=== PATIENT | female | born 1945 | race Caucasian/White ===

== ENCOUNTER → 2020-02-14 | Outpatient (CLI) | payer MEDICARE, OTHER ==
[~2020-02-14] MED LIST: ACET325 PO; AMLO5; AMLO5 PO; BENZ100A PO; CALCIUM; CHOL10002 PO; CLOP75 PO; CONEST.625; DICL75ER; DOCU100 PO; Estradiol0.5 MG PO; FERR325 PO; FLUO20; FLUSAL1005 INH; GABA600 PO; GLYCAS PR; HYDR1TAB94 PO; K-Dur20 MEQ PO; LISHYD2012; Lasix20 MG PO; Lopressor 25 mg25 MG PO; MELA3 PO; MONT10T PO; MULTI VIT; MULVITMIND PO; NYST100000 PO; OMEP20ER; OXYACE5T PO; OXYACE7.5T PO; PLAQUENIL200 MG PO; Percocet 5-3251 EACH PO; RXOXYACE PO; THEO300ERA; TOCO400; VITAMIN B 12; VITAMIN C; Zithromax250 MG PO; Zofran Odt4 MG PO
== END | disposition home or self-care (01) ==
LOC: LAB SHORT 14:14 → LAB EV 14:14
DX: R05 Cough (principal); Z20.828 Contact with and (suspected) exposure to other viral communicable diseases
CPT/HCPCS: U0003

== ENCOUNTER → 2021-05-06 | Outpatient (CLI) | payer MEDICARE, OTHER ==
[~2021-05-06] MED LIST changes: +ALBU90OI INH; +ASCO500 PO; +CAL-CITRATE PL1 EAC1 PO; +FERROUS GLUCON PO; +METTREX2.5; +NITROGLYCERIN0.4 M1 SL; +OMEP20ER PO; +PLAQUENIL200 M1 PO; +Vitamin B-121000 MCG PO; +ZOLEDRONIC ACID; +ZOLOFT100 MG PO; +ZYRTEC10 M3 PO
[2021-05-06 14:15] LABS: BASOPHILS ABSOLUTE AUTO 0.02 K/mm3 (0.00-0.23); BASOPHILS PERCENT AUTO 0 % (0-2); EOSINOPHILS ABSOLUTE AUTO 0.07 K/mm3 (0.00-0.68); EOSINOPHILS PERCENT AUTO 1 % (0-6); Hematocrit 47.1 % (33.0-51.0); Hemoglobin 15.7 g/dL (11.5-16.0); IMMATURE GRAN ABSOLUTE AUTO 0.03 K/mm3 (0.00-0.10); IMMATURE GRAN PERCENT AUTO 1 % (0-1); LYMPHOCYTES ABSOLUTE AUTO 1.08 K/mm3 (0.84-5.20); LYMPHOCYTES PERCENT AUTO 21 % (21-46); MONOCYTES ABSOLUTE AUTO 0.47 K/mm3 (0.16-1.47); MONOCYTES PERCENT AUTO 9 % (4-13); Mean Corpuscular HGB 30.7 pg (26.0-34.0); Mean Corpuscular HGB Conc 33.3 g/dL (31.5-36.5); Mean Corpuscular Volume 92 fL (80-100); Mean Platelet Volume 9.9 fL (9.1-12.4); NEUTROPHILS ABSOLUTE AUTO 3.37 K/mm3 (1.96-9.15); NEUTROPHILS PERCENT AUTO 67 % (41-73); Platelet Count 238 K/mm3 (150-400); Red Blood Cell Count 5.11 M/mm3 (3.80-5.20); White Blood Cell Count 5.04 K/mm3 (4.00-11.30)
[2021-05-06 14:23] LABS: Alanine Aminotransfer (ALT/SGP 28 U/L (12-78); Albumin, Blood 3.8 g/dL (3.4-5.0); Albumin/Globulin Ratio 1.3 (0.8-1.8); Alk Phos 158 U/L (40-126); Anion Gap 10 mmol/L (6-16); Aspartate Aminotrans (AST/SGOT 16 U/L (12-37); Bilirubin, Total 0.5 mg/dL (0.1-1.0); Blood Urea Nitrogen 22 mg/dL (8-24); CO2, Blood 29 mmol/L (21-32); Calcium, Blood 9.3 mg/dL (8.5-10.1); Chloride, Blood 102 mmol/L (98-108); Creatinine, Blood 0.88 mg/dL (0.40-1.00); Glomerular Filtration Rate >60 (60-); Glucose, Blood 105 mg/dL (70-99); Potassium, Blood 4.7 mmol/L (3.5-5.5); Sodium, Blood 141 mmol/L (136-145); Total Protein, Blood 6.8 g/dL (6.4-8.2)
== END | disposition home or self-care (01) ==
LOC: LAB SHORT 14:09
PROVIDERS: General Practice
DX: Z09 Encounter for follow-up examination after completed treatment for conditions other than malignant neoplasm (principal); Z87.09 Personal history of other diseases of the respiratory system
CPT/HCPCS: 80053; 85025

== ENCOUNTER 2021-06-07 08:11 | Day surgery (SDC) | payer MEDICARE, OTHER ==
[~2021-06-07] VITALS: Ht 162.6 cm; Wt 118.2 kg
== END 2021-06-07 10:49 | disposition home or self-care (01) ==
LOC: ORSCSDS 08:11
PROVIDERS: Internal Medicine Gastroenterology
PROC: 0DBL8ZX Excision of Transverse Colon, Via Natural or Artificial Opening Endoscopic, Diagnostic (ICD-10-PCS; principal; 2021-06-07 09:30)
PROC: 0DBK8ZX Excision of Ascending Colon, Via Natural or Artificial Opening Endoscopic, Diagnostic (ICD-10-PCS; principal; 2021-06-07 09:30)
DX: Z86.010 Personal history of colon polyps (principal); Z80.0 Family history of malignant neoplasm of digestive organs; D12.3 Benign neoplasm of transverse colon; D12.2 Benign neoplasm of ascending colon; K63.5 Polyp of colon; Z79.02 Long term (current) use of antithrombotics/antiplatelets; K21.9 Gastro-esophageal reflux disease without esophagitis; K57.30 Diverticulosis of large intestine without perforation or abscess without bleeding; K64.8 Other hemorrhoids; K64.4 Residual hemorrhoidal skin tags; J45.909 Unspecified asthma, uncomplicated; I10 Essential (primary) hypertension; M06.9 Rheumatoid arthritis, unspecified; Z79.899 Other long term (current) drug therapy; Z87.891 Personal history of nicotine dependence; G47.33 Obstructive sleep apnea (adult) (pediatric); Z99.81 Dependence on supplemental oxygen; E66.01 Morbid (severe) obesity due to excess calories; Z68.41 Body mass index [BMI] 40.0-44.9, adult
CPT/HCPCS: 88305; J2250; J2704; J7120

== ENCOUNTER → 2021-06-07 | Outpatient (CLI) | payer MEDICARE, OTHER ==
[~2021-06-07] MED LIST changes: +ALBUTEROL1.25 MG/3 INH; +BREO ELLIPTA 11 EAC1 INH; +C COMPLEX1000 M1 PO; +CALCIUM CITRAT200 MG PO; +FERROUS GLUCON324 M7 PO; +FOLI1 PO; +FURO20 PO; +GABA100 PO; +HYDSUL200 PO; +METTREX2.5 PO; +MULTIPLE VITAM1 EACH PO; +NITR.4SL SL; +POTA8 PO; +PYRI60 PO; +SERT100 PO; +Vitamin B Comple1 EA PO; +ZYRTEC10 M2 PO
== END | disposition home or self-care (01) ==
LOC: LAB SHORT 12:49
DX: N39.0 Urinary tract infection, site not specified (principal)
CPT/HCPCS: 87077; 87086; 87186

== ENCOUNTER 2022-04-11 19:21 | Emergency (ER) | payer MEDICARE, OTHER ==
[~2022-04-11] VITALS: Ht 162.6 cm; Wt 117.9 kg
[2022-04-11 20:26] LABS: BASOPHILS ABSOLUTE AUTO 0.03 K/mm3 (0.00-0.23); BASOPHILS PERCENT AUTO 0 % (0-2); EOSINOPHILS ABSOLUTE AUTO 0.12 K/mm3 (0.00-0.68); EOSINOPHILS PERCENT AUTO 1 % (0-6); Hematocrit 34.7 % (33.0-51.0); Hemoglobin 11.7 g/dL (11.5-16.0); IMMATURE GRAN ABSOLUTE AUTO 0.04 K/mm3 (0.00-0.10); IMMATURE GRAN PERCENT AUTO 0 % (0-1); LYMPHOCYTES ABSOLUTE AUTO 2.23 K/mm3 (0.84-5.20); LYMPHOCYTES PERCENT AUTO 24 % (21-46); MONOCYTES ABSOLUTE AUTO 0.95 K/mm3 (0.16-1.47); MONOCYTES PERCENT AUTO 10 % (4-13); Mean Corpuscular HGB 31.1 pg (26.0-34.0); Mean Corpuscular HGB Conc 33.7 g/dL (31.5-36.5); Mean Corpuscular Volume 92 fL (80-100); Mean Platelet Volume 9.6 fL (9.1-12.4); NEUTROPHILS ABSOLUTE AUTO 6.05 K/mm3 (1.96-9.15); NEUTROPHILS PERCENT AUTO 64 % (41-73); Platelet Count 230 K/mm3 (150-400); RDW Coefficient Variation 13.6 % (11.7-14.2); RDW Standard Deviation 45.2 fL (35.1-46.3); Red Blood Cell Count 3.76 M/mm3 (3.80-5.20); White Blood Cell Count 9.42 K/mm3 (4.00-11.30)
[2022-04-11 20:43] LABS: Albumin, Blood 3.3 g/dL (3.4-5.0); Albumin/Globulin Ratio 0.9 (0.8-1.8); Bilirubin, Total 0.5 mg/dL (0.1-1.0); Bun/Creatinine Ratio 33.1 (12.0-20.0); Calcium, Blood 8.9 mg/dL (8.5-10.1); Creatinine, Blood 0.73 mg/dL (0.40-1.00); Globulin, Blood 3.7 g/dL (2.2-4.0); Potassium, Blood 5.1 mmol/L (3.5-5.5)
[2022-04-11 21:07] LABS: Influenza A, PCR NEGATIVE (NEGATIVE); Influenza B, PCR NEGATIVE (NEGATIVE); Resp Syncytial Virus, PCR NEGATIVE (NEGATIVE); SARS-Cov-2 (COVID-19) PCR, MMC NEGATIVE (NEGATIVE)
== END 2022-04-12 00:41 | disposition home or self-care (01) ==
LOC: ER 19:21
PROVIDERS: Physician Assistant
DX: R06.02 Shortness of breath (principal); I11.0 Hypertensive heart disease with heart failure; I50.9 Heart failure, unspecified; J45.909 Unspecified asthma, uncomplicated; Z87.891 Personal history of nicotine dependence; Z20.822 Contact with and (suspected) exposure to COVID-19; Z79.899 Other long term (current) drug therapy
CPT/HCPCS: 0241U; 36415; 71046; 71260; 80053; 84484; 85025; 93005; 93010; 96374; 99285-25; A9270; J1940; Q9967

== ENCOUNTER 2022-05-30 11:48 | Day surgery (SDC) | payer MEDICARE, OTHER ==
[~2022-05-30] VITALS: Ht 162.6 cm; Wt 116.4 kg
[2022-05-30] MEDS ORDERED: ELIQUIS5 M2 (12:02)
[2022-05-30] MEDS ORDERED: JARDIANCE10 MG (12:08)
[2022-05-30] MEDS ORDERED: LISI5 (12:08)
[2022-05-30] MEDS ORDERED: CYCL10 (12:08)
[2022-05-30] MEDS ORDERED: METO25ER (12:09)
[2022-05-30] MEDS ORDERED: MAGCIT300 (12:09)
== END 2022-05-30 14:27 | disposition home or self-care (01) ==
LOC: ORSCSDS 11:48
PROVIDERS: Internal Medicine Gastroenterology
PROC: 0DBL8ZX Excision of Transverse Colon, Via Natural or Artificial Opening Endoscopic, Diagnostic (ICD-10-PCS; principal; 2022-05-30 13:00)
PROC: 0DBN8ZX Excision of Sigmoid Colon, Via Natural or Artificial Opening Endoscopic, Diagnostic (ICD-10-PCS; principal; 2022-05-30 13:00)
DX: Z12.11 Encounter for screening for malignant neoplasm of colon (principal); D12.3 Benign neoplasm of transverse colon; K63.5 Polyp of colon; K57.30 Diverticulosis of large intestine without perforation or abscess without bleeding; K64.8 Other hemorrhoids; Z86.010 Personal history of colon polyps; Z80.0 Family history of malignant neoplasm of digestive organs; I10 Essential (primary) hypertension; J45.909 Unspecified asthma, uncomplicated; M06.9 Rheumatoid arthritis, unspecified; E66.01 Morbid (severe) obesity due to excess calories; Z68.42 Body mass index [BMI] 45.0-49.9, adult; Z79.51 Long term (current) use of inhaled steroids; Z79.899 Other long term (current) drug therapy; Z87.891 Personal history of nicotine dependence
CPT/HCPCS: 88305; J2370; J2704; J7120

== ENCOUNTER → 2022-09-08 | Outpatient (CLI) | payer MEDICARE, OTHER ==
[~2022-09-08] MED LIST changes: +AZIT250 PO; +CALQUENCE100 M1 PO; +CEFD300 PO; +CYCL10; +ELIQUIS5 M2 PO; +Flonase 0.05% N16 GM; +JARDIANCE10 MG PO; +LISI5 PO; +MAGCIT300; +METO25 PO; +METO25ER; +Vitamin D1000 UNI1 PO
[2022-09-08 19:06] LABS: BASOPHILS ABSOLUTE AUTO 0.03 K/mm3 (0.00-0.23); BASOPHILS PERCENT AUTO 0 % (0-2); EOSINOPHILS ABSOLUTE AUTO 0.09 K/mm3 (0.00-0.68); EOSINOPHILS PERCENT AUTO 1 % (0-6); Hematocrit 38.2 % (33.0-51.0); Hemoglobin 12.6 g/dL (11.5-16.0); IMMATURE GRAN ABSOLUTE AUTO 0.03 K/mm3 (0.00-0.10); IMMATURE GRAN PERCENT AUTO 0 % (0-1); LYMPHOCYTES ABSOLUTE AUTO 1.05 K/mm3 (0.84-5.20); LYMPHOCYTES PERCENT AUTO 11 % (21-46); MONOCYTES ABSOLUTE AUTO 1.14 K/mm3 (0.16-1.47); MONOCYTES PERCENT AUTO 12 % (4-13); Mean Corpuscular HGB 28.7 pg (26.0-34.0); Mean Corpuscular Volume 87 fL (80-100); Mean Platelet Volume 10.5 fL (9.1-12.4); NEUTROPHILS ABSOLUTE AUTO 7.15 K/mm3 (1.96-9.15); NEUTROPHILS PERCENT AUTO 75 % (41-73); Platelet Count 162 K/mm3 (150-400); RDW Coefficient Variation 15.2 % (11.7-14.2); RDW Standard Deviation 48.9 fL (35.1-46.3); Red Blood Cell Count 4.39 M/mm3 (3.80-5.20); White Blood Cell Count 9.49 K/mm3 (4.00-11.30)
[2022-09-08 19:14] LABS: Albumin, Blood 3.3 g/dL (3.4-5.0); Albumin/Globulin Ratio 0.9 (0.8-1.8); Bilirubin, Total 0.5 mg/dL (0.1-1.0); Globulin, Blood 3.7 g/dL (2.2-4.0); Potassium, Blood 4.1 mmol/L (3.5-5.5)
== END | disposition home or self-care (01) ==
LOC: LAB SHORT 18:58 → LAB 18:58
PROVIDERS: Chiropractor
DX: R50.9 Fever, unspecified (principal); R07.9 Chest pain, unspecified
CPT/HCPCS: 80053; 84484; 85025

== ENCOUNTER 2022-09-09 03:39 | Observation (INO) | payer MEDICARE, OTHER ==
[~2022-09-09] VITALS: Ht 162.6 cm; Wt 118.1 kg
[~2022-09-09 03:39] MED LIST changes: -AZIT250 PO; -CALQUENCE100 M1 PO; -CEFD300 PO; -Flonase 0.05% N16 GM; -METO25 PO; -Vitamin D1000 UNI1 PO
[2022-09-09 05:00] LABS: BASOPHILS ABSOLUTE AUTO 0.02 K/mm3 (0.00-0.23); BASOPHILS PERCENT AUTO 0 % (0-2); EOSINOPHILS ABSOLUTE AUTO 0.15 K/mm3 (0.00-0.68); EOSINOPHILS PERCENT AUTO 1 % (0-6); Hematocrit 38.4 % (33.0-51.0); Hemoglobin 12.3 g/dL (11.5-16.0); IMMATURE GRAN ABSOLUTE AUTO 0.05 K/mm3 (0.00-0.10); IMMATURE GRAN PERCENT AUTO 1 % (0-1); LYMPHOCYTES ABSOLUTE AUTO 1.16 K/mm3 (0.84-5.20); LYMPHOCYTES PERCENT AUTO 11 % (21-46); MONOCYTES ABSOLUTE AUTO 1.13 K/mm3 (0.16-1.47); MONOCYTES PERCENT AUTO 11 % (4-13); Mean Corpuscular HGB 28.4 pg (26.0-34.0); Mean Corpuscular Volume 89 fL (80-100); Mean Platelet Volume 11.3 fL (9.1-12.4); NEUTROPHILS ABSOLUTE AUTO 8.18 K/mm3 (1.96-9.15); NEUTROPHILS PERCENT AUTO 76 % (41-73); Platelet Count 162 K/mm3 (150-400); RDW Coefficient Variation 14.9 % (11.7-14.2); RDW Standard Deviation 49.2 fL (35.1-46.3); Red Blood Cell Count 4.33 M/mm3 (3.80-5.20); White Blood Cell Count 10.69 K/mm3 (4.00-11.30)
[2022-09-09 05:13] LABS: Albumin, Blood 3.2 g/dL (3.4-5.0); Albumin/Globulin Ratio 0.9 (0.8-1.8); Bilirubin, Total 0.5 mg/dL (0.1-1.0); Bun/Creatinine Ratio 24.2 (12.0-20.0); Calcium, Blood 8.5 mg/dL (8.5-10.1); Creatinine, Blood 0.91 mg/dL (0.40-1.00); Globulin, Blood 3.7 g/dL (2.2-4.0); Total Protein, Blood 6.9 g/dL (6.4-8.2)
[2022-09-09] MEDS ORDERED: Vitamin D1000 UNI1 PO (10:36)
[2022-09-09] MEDS ORDERED: Flonase 0.05% N16 GM (10:37)
[2022-09-09] MEDS ORDERED: METO25 PO (10:41)
[2022-09-09] MEDS ORDERED: MONT10T PO (10:42)
[2022-09-09] MEDS ORDERED: CALQUENCE100 M1 PO (10:43)
[2022-09-09] MEDS ORDERED: ALBU90OI INH (12:15)
[2022-09-09 13:16] LABS: Influenza A, PCR NEGATIVE (NEGATIVE); Influenza B, PCR NEGATIVE (NEGATIVE); Resp Syncytial Virus, PCR NEGATIVE (NEGATIVE); SARS-Cov-2 (COVID-19) PCR, MMC NEGATIVE (NEGATIVE)
[2022-09-09 16:36] VITALS: BP 124/55
[2022-09-09 19:54] VITALS: BP 126/48
--- NOTE | 2022-09-09 19:54 | NUR ---
SUMMARY- PT A/O X4. ABLE TO MAKE NEEDS KNOWN. SITS AT THE EDGE OF BED FOR MEALS. PT HAS DECRESE BASES, STRONG COUGH. OXYGEN AT 2L. WHEN RN TOOK OXYGEN OFF, PT'S SATS WERE 94%, BUT PT STATES SHE COULDN'T BREATH WITHOUG IT, SO WE REPLACED. PT HAD ROUTINE NEB TX FOR INTERMITTANT PERIODS OF WHEEZE, NEBS ARE HELPFUL. TOLERATING FOOD AND FLUIDS. CONTINENT OF BLADDER, VOIDS INDEPENDANT TO BATHROOM. REPORTED ALL TO BEENA, HEELER.
[2022-09-10 02:23] VITALS: BP 133/69
--- NOTE | 2022-09-10 05:40 | NUR ---
SHIFT SUMMARY 77 YR F ADMITTED ON 09/09/22 FOR PNEUMONIA. FULL CODE. NO ACUTE CHANGES THIS SHIFT. PT IS A&O X 4 AND IS INDEPENDANT IN THE ROOM. HER DAUGHTER STAYED IN THE ROOM WITH LAST NIGHT. PT HAD NO C/O PAIN OR DISCOMFORT AND DID NOT CALL FOR ANY ASSISSTANCE THROUGHOUT THE NIGHT.
[2022-09-10 08:06] VITALS: BP 116/54
[2022-09-10] MEDS ORDERED: AZIT250 PO (12:55)
[2022-09-10] MEDS ORDERED: CEFD300 PO (12:56)
--- NOTE | 2022-09-10 13:34 | NUR ---
PT DISCHARGED 1315 WITH DC INSTRUCTIONS. AMBULATES INDEPENDANT IN ROOM, MIN SOB. OXYGEN ON/OFF PER PT DIRECTION. HAS HOME O2. WHEELCHAIR OUT TO PRIVATE CAR, BELONGINGS SENT HOME INCLUDING [facility] HOME MED- SAW DAUGHTER PUT IT IN THE BAG.
== END 2022-09-10 13:32 | disposition home or self-care (01) ==
LOC: ER 03:39 → MEDS 03:40 → ENPENDDIS 09-10 11:27 → MEDS 09-10 13:32
PROVIDERS: Student in an Organized Health Care Education/Training Program; ADMIT Internal Medicine
DX: J44.9 Chronic obstructive pulmonary disease, unspecified (principal); I10 Essential (primary) hypertension; I48.91 Unspecified atrial fibrillation; Z85.72 Personal history of non-Hodgkin lymphomas; Z79.01 Long term (current) use of anticoagulants; Z79.899 Other long term (current) drug therapy; Z20.822 Contact with and (suspected) exposure to COVID-19
CPT/HCPCS: 0241U; 36415; 71260; 80053; 83605; 84484; 85025; 87040; 93005; 93010; 94640; 94664; 94760; 96365; 96366; 96375; 99285-25; A9270; G0378; J0456; J0696; J7050; Q9967

== ENCOUNTER → 2023-02-26 | Outpatient (CLI) | payer MEDICARE, OTHER ==
[~2023-02-26] MED LIST changes: +AZIT250 PO; +CALQUENCE100 M1 PO; +CEFD300 PO; +DRON400T; +Flonase 0.05% N16 GM; +METO25 PO; +OXAYDO5 M1 PO; +Vitamin D1000 UNI1 PO
[2023-02-26 17:36] LABS: BASOPHILS ABSOLUTE AUTO 0.03 K/mm3 (0.00-0.23); BASOPHILS PERCENT AUTO 1 % (0-2); EOSINOPHILS ABSOLUTE AUTO 0.15 K/mm3 (0.00-0.68); EOSINOPHILS PERCENT AUTO 3 % (0-6); Hematocrit 41.6 % (33.0-51.0); Hemoglobin 13.4 g/dL (11.5-16.0); IMMATURE GRAN ABSOLUTE AUTO 0.07 K/mm3 (0.00-0.10); IMMATURE GRAN PERCENT AUTO 1 % (0-1); LYMPHOCYTES ABSOLUTE AUTO 1.18 K/mm3 (0.84-5.20); LYMPHOCYTES PERCENT AUTO 24 % (21-46); MONOCYTES PERCENT AUTO 14 % (4-13); Mean Corpuscular HGB 28.5 pg (26.0-34.0); Mean Corpuscular HGB Conc 32.2 g/dL (31.5-36.5); Mean Corpuscular Volume 88 fL (80-100); Mean Platelet Volume 10.5 fL (9.1-12.4); NEUTROPHILS ABSOLUTE AUTO 2.81 K/mm3 (1.96-9.15); NEUTROPHILS PERCENT AUTO 57 % (41-73); Platelet Count 205 K/mm3 (150-400); RDW Coefficient Variation 15.9 % (11.7-14.2); RDW Standard Deviation 51.4 fL (35.1-46.3); Red Blood Cell Count 4.71 M/mm3 (3.80-5.20); White Blood Cell Count 4.94 K/mm3 (4.00-11.30)
[2023-02-26 17:46] LABS: Albumin, Blood 3.8 g/dL (3.4-5.0); Albumin/Globulin Ratio 1.1 (0.8-1.8); Bilirubin, Total 0.5 mg/dL (0.1-1.0); Bun/Creatinine Ratio 19.8 (12.0-20.0); Calcium, Blood 9.4 mg/dL (8.5-10.1); Creatinine, Blood 1.01 mg/dL (0.40-1.00); Globulin, Blood 3.4 g/dL (2.2-4.0); Total Protein, Blood 7.2 g/dL (6.4-8.2)
== END | disposition home or self-care (01) ==
LOC: LAB SHORT 17:11 → LAB 17:11
PROVIDERS: Physician Assistant Medical
DX: R58 Hemorrhage, not elsewhere classified (principal); R10.12 Left upper quadrant pain
CPT/HCPCS: 80053; 83690; 85025

== ENCOUNTER 2023-04-03 07:10 | Day surgery (SDC) | payer OTHER, MEDICARE ==
[~2023-04-03] VITALS: Ht 162.6 cm; Wt 107.0 kg
[2023-04-03] VITALS (7 sets, daily range): BP systolic 127–163; BP diastolic 52–72
[~2023-04-03 07:10] MED LIST changes: +BREO ELLIPTA 11 EAC1 IH; +BRUKINSA80 MG PO; +CYCL10 PO; +MAGNESIUM OXID500 MG PO
--- NOTE | 2023-04-03 13:30 | NUR ---
PT AMBULATES TO RESTROOM AND BACK WIHTOUT DIFF. PT ABLE TO VOID WITHOUT DIFF. PT NEURO REMAINS WNL.
--- NOTE | 2023-04-03 14:15 | NUR ---
PT VERBALIZES UNDERSTANDING WRITTEN INSTRUCTIONS. DENIES QUESTIONS OR CONCERNS. PT IV DC'D. CATH INTACT. PRESSURE DSG IN PLACE. PT DRESSES SELF WITHOUT ASSISTANCE. PT THORACIC BACK SITE REMAINS DRY, CLEAR, AND INTACT. PT WILL DC TO HOME VIA WC BY DAUGHTER.
== END 2023-04-03 14:45 | disposition home or self-care (01) ==
LOC: MHTC 07:10
DX: S22.060A Wedge compression fracture of T7-T8 vertebra, initial encounter for closed fracture (principal); I11.0 Hypertensive heart disease with heart failure; I50.9 Heart failure, unspecified; J44.9 Chronic obstructive pulmonary disease, unspecified; M81.0 Age-related osteoporosis without current pathological fracture; M19.90 Unspecified osteoarthritis, unspecified site; I73.9 Peripheral vascular disease, unspecified; M06.9 Rheumatoid arthritis, unspecified; W01.0XXA Fall on same level from slipping, tripping and stumbling without subsequent striking against object, initial encounter; Z87.891 Personal history of nicotine dependence; Z98.84 Bariatric surgery status; Z80.0 Family history of malignant neoplasm of digestive organs; Z88.5 Allergy status to narcotic agent; Z79.899 Other long term (current) drug therapy
CPT/HCPCS: 22513; 88307; 88341; 88342; 99152; 99153; J0360; J0690; J2250; J3010; J7030; J7050

== ENCOUNTER → 2023-08-21 | Outpatient (CLI) | payer MEDICARE, OTHER ==
[2023-08-21 15:21] LABS: BASOPHILS ABSOLUTE AUTO 0.01 K/mm3 (0.00-0.23); BASOPHILS PERCENT AUTO 0 % (0-2); EOSINOPHILS ABSOLUTE AUTO 0.05 K/mm3 (0.00-0.68); EOSINOPHILS PERCENT AUTO 1 % (0-6); Hematocrit 38.6 % (33.0-51.0); Hemoglobin 12.5 g/dL (11.5-16.0); IMMATURE GRAN ABSOLUTE AUTO 0.02 K/mm3 (0.00-0.10); IMMATURE GRAN PERCENT AUTO 0 % (0-1); LYMPHOCYTES ABSOLUTE AUTO 1.09 K/mm3 (0.84-5.20); LYMPHOCYTES PERCENT AUTO 14 % (21-46); MONOCYTES ABSOLUTE AUTO 0.68 K/mm3 (0.16-1.47); MONOCYTES PERCENT AUTO 9 % (4-13); Mean Corpuscular HGB 29.1 pg (26.0-34.0); Mean Corpuscular HGB Conc 32.4 g/dL (31.5-36.5); Mean Corpuscular Volume 90 fL (80-100); Mean Platelet Volume 10.5 fL (9.1-12.4); NEUTROPHILS ABSOLUTE AUTO 5.81 K/mm3 (1.96-9.15); NEUTROPHILS PERCENT AUTO 76 % (41-73); Platelet Count 178 K/mm3 (150-400); RDW Coefficient Variation 13.7 % (11.7-14.2); RDW Standard Deviation 45.1 fL (35.1-46.3); White Blood Cell Count 7.66 K/mm3 (4.00-11.30)
[2023-08-21 15:46] LABS: Albumin, Blood 3.5 g/dL (3.4-5.0); Bilirubin, Total 0.8 mg/dL (0.1-1.0); Bun/Creatinine Ratio 20.2 (12.0-20.0); Creatinine, Blood 0.84 mg/dL (0.40-1.00); Globulin, Blood 3.4 g/dL (2.2-4.0); Magnesium, Blood 2.2 mg/dL (1.6-2.4); Potassium, Blood 3.7 mmol/L (3.5-5.5); Thyroid Stimulating Hormone 1.363 uIU/mL (0.360-4.800); Total Protein, Blood 6.9 g/dL (6.4-8.2)
[2023-08-21 15:52] LABS: International Normalized Ratio 1.02; Prothrombin Time Results 10.9 Sec (9.7-11.5)
== END | disposition home or self-care (01) ==
LOC: LAB SHORT 15:16
PROVIDERS: Chiropractor
DX: R53.83 Other fatigue (principal); R06.09 Other forms of dyspnea; R23.3 Spontaneous ecchymoses
CPT/HCPCS: 80053; 83735; 83880; 84443; 84484; 85025; 85610; 85730

== ENCOUNTER 2023-10-16 13:49 | Emergency (ER) | payer MEDICARE, OTHER ==
[~2023-10-16] VITALS: Ht 162.6 cm; Wt 104.3 kg
[2023-10-16] MEDS ORDERED: Remdesivir (EUA) 200 MG in NS 250 ML IV ONE (14:10)
[2023-10-16 16:07] VITALS: BP 110/86
== END 2023-10-16 16:28 | disposition home or self-care (01) ==
LOC: ER 13:49
DX: U07.1 COVID-19 (principal); J45.909 Unspecified asthma, uncomplicated; I48.91 Unspecified atrial fibrillation; I11.0 Hypertensive heart disease with heart failure; I50.9 Heart failure, unspecified; Z87.891 Personal history of nicotine dependence; Z79.899 Other long term (current) drug therapy; Z79.01 Long term (current) use of anticoagulants
CPT/HCPCS: 96365; 99284-25; J0248; J7050

== ENCOUNTER 2023-10-21 15:20 | Emergency (ER) | payer MEDICARE, OTHER ==
[~2023-10-21] VITALS: Ht 165.1 cm; Wt 65.8 kg
[2023-10-21 16:28] LABS: BASOPHILS ABSOLUTE AUTO 0.01 K/mm3 (0.00-0.23); BASOPHILS PERCENT AUTO 0 % (0-2); EOSINOPHILS ABSOLUTE AUTO 0.01 K/mm3 (0.00-0.68); EOSINOPHILS PERCENT AUTO 0 % (0-6); Hematocrit 41.3 % (33.0-51.0); Hemoglobin 13.2 g/dL (11.5-16.0); IMMATURE GRAN ABSOLUTE AUTO 0.02 K/mm3 (0.00-0.10); IMMATURE GRAN PERCENT AUTO 0 % (0-1); LYMPHOCYTES ABSOLUTE AUTO 0.89 K/mm3 (0.84-5.20); LYMPHOCYTES PERCENT AUTO 12 % (21-46); MONOCYTES ABSOLUTE AUTO 0.74 K/mm3 (0.16-1.47); MONOCYTES PERCENT AUTO 10 % (4-13); Mean Corpuscular Volume 88 fL (80-100); Mean Platelet Volume 9.7 fL (9.1-12.4); NEUTROPHILS ABSOLUTE AUTO 6.03 K/mm3 (1.96-9.15); NEUTROPHILS PERCENT AUTO 78 % (41-73); Platelet Count 244 K/mm3 (150-400); RDW Coefficient Variation 13.8 % (11.7-14.2); RDW Standard Deviation 44.2 fL (35.1-46.3); Red Blood Cell Count 4.72 M/mm3 (3.80-5.20)
[2023-10-21 16:53] LABS: Albumin, Blood 3.5 g/dL (3.4-5.0); Albumin/Globulin Ratio 0.9 (0.8-1.8); Bilirubin, Total 0.6 mg/dL (0.1-1.0); Bun/Creatinine Ratio 33.6 (12.0-20.0); Calcium, Blood 8.9 mg/dL (8.5-10.1); Creatinine, Blood 0.95 mg/dL (0.40-1.00); Globulin, Blood 3.7 g/dL (2.2-4.0); Potassium, Blood 4.1 mmol/L (3.5-5.5); Total Protein, Blood 7.2 g/dL (6.4-8.2)
[2023-10-21] MEDS ORDERED: NS 1,000 ML IV SCH (17:55)
[2023-10-21] MEDS ORDERED: AZIT250 PO (18:02)
[2023-10-21] MEDS ORDERED: CEFD300 PO (18:02)
[2023-10-21 18:45] VITALS: BP 128/77
== END 2023-10-21 19:24 | disposition home or self-care (01) ==
LOC: ER 15:20
PROVIDERS: Student in an Organized Health Care Education/Training Program
DX: J06.9 Acute upper respiratory infection, unspecified (principal); Z85.72 Personal history of non-Hodgkin lymphomas; I11.0 Hypertensive heart disease with heart failure; I50.9 Heart failure, unspecified; J45.909 Unspecified asthma, uncomplicated; K21.9 Gastro-esophageal reflux disease without esophagitis; I48.91 Unspecified atrial fibrillation; Z87.891 Personal history of nicotine dependence; Z79.899 Other long term (current) drug therapy; Z79.01 Long term (current) use of anticoagulants
CPT/HCPCS: 71046; 80053; 85025; 93005; 93010; 99285-25; J7030

== ENCOUNTER → 2023-11-13 | Outpatient (CLI) | payer MEDICARE, OTHER ==
[2023-11-13 15:58] LABS: BASOPHILS ABSOLUTE AUTO 0.01 K/mm3 (0.00-0.23); BASOPHILS PERCENT AUTO 0 % (0-2); EOSINOPHILS PERCENT AUTO 0 % (0-6); Hematocrit 40.6 % (33.0-51.0); Hemoglobin 12.7 g/dL (11.5-16.0); IMMATURE GRAN ABSOLUTE AUTO 0.02 K/mm3 (0.00-0.10); IMMATURE GRAN PERCENT AUTO 0 % (0-1); LYMPHOCYTES ABSOLUTE AUTO 1.01 K/mm3 (0.84-5.20); LYMPHOCYTES PERCENT AUTO 18 % (21-46); MONOCYTES PERCENT AUTO 7 % (4-13); Mean Corpuscular HGB 27.6 pg (26.0-34.0); Mean Corpuscular HGB Conc 31.3 g/dL (31.5-36.5); Mean Corpuscular Volume 88 fL (80-100); Mean Platelet Volume 9.2 fL (9.1-12.4); NEUTROPHILS ABSOLUTE AUTO 4.29 K/mm3 (1.96-9.15); NEUTROPHILS PERCENT AUTO 75 % (41-73); Platelet Count 255 K/mm3 (150-400); RDW Coefficient Variation 13.7 % (11.7-14.2); RDW Standard Deviation 43.8 fL (35.1-46.3); White Blood Cell Count 5.73 K/mm3 (4.00-11.30)
[2023-11-13 16:13] LABS: Albumin, Blood 3.3 g/dL (3.4-5.0); Albumin/Globulin Ratio 0.8 (0.8-1.8); Bilirubin, Total 0.4 mg/dL (0.1-1.0); Calcium, Blood 9.3 mg/dL (8.5-10.1); Creatinine, Blood 0.89 mg/dL (0.40-1.00); Globulin, Blood 4.1 g/dL (2.2-4.0); Potassium, Blood 4.1 mmol/L (3.5-5.5); Total Protein, Blood 7.4 g/dL (6.4-8.2)
[2023-11-13 16:32] LABS: Prothrombin Time Results 10.7 Sec (9.7-11.5)
== END ==
LOC: LAB 15:52 → LAB SHORT 15:52
PROVIDERS: Internal Medicine
DX: R31.9 Hematuria, unspecified (principal)
CPT/HCPCS: 80053; 85025; 85610; 85730

== ENCOUNTER 2024-03-28 07:55 | Day surgery (SDC) | payer MEDICARE, OTHER ==
[~2024-03-28] VITALS: Ht 162.6 cm; Wt 95.6 kg
[~2024-03-28 07:55] MED LIST changes: +Lactated Ringer's 1,000 ML IV ONE
[2024-03-28] MEDS ORDERED: VENCLEXTA100 MG (09:01)
[2024-03-28] MEDS ORDERED: Vitamin B-12100 MCG (09:03)
[2024-03-28] MEDS ORDERED: Lactated Ringer's 1,000 ML IV ONE (09:30)
[2024-03-28] MEDS ORDERED: propofoL 50 ML IV ONE (09:42)
[2024-03-28] MEDS ORDERED: Glycopyrrolate 0.2 MG/ML 1MLVIAL ONE (10:39)
[2024-03-28 11:24] VITALS: BP 136/65
--- NOTE | 2024-03-28 11:26 | NUR ---
03/28/24 1126 Prateek Burrows RECIEVED REPORT FROM BRAVO LOYOLA. CHARTED PER REPORT. PT TOILETED AND WHEELCHAIRED TO DAUGHTER TO BE DISCHARGED.
== END 2024-03-28 11:18 | disposition home or self-care (01) ==
LOC: ORSCSDS 07:55
PROVIDERS: Internal Medicine Gastroenterology
PROC: 0DBE8ZX Excision of Large Intestine, Via Natural or Artificial Opening Endoscopic, Diagnostic (ICD-10-PCS; principal; 2024-03-28 09:15)
PROC: 0DBM8ZX Excision of Descending Colon, Via Natural or Artificial Opening Endoscopic, Diagnostic (ICD-10-PCS; principal; 2024-03-28 09:15)
PROC: 0DBK8ZX Excision of Ascending Colon, Via Natural or Artificial Opening Endoscopic, Diagnostic (ICD-10-PCS; principal; 2024-03-28 09:15)
DX: R19.4 Change in bowel habit (principal); K63.5 Polyp of colon; D12.2 Benign neoplasm of ascending colon; K52.9 Noninfective gastroenteritis and colitis, unspecified; Z80.0 Family history of malignant neoplasm of digestive organs; Z83.719 Family history of colon polyps, unspecified; Z86.0101 Personal history of adenomatous and serrated colon polyps; K21.9 Gastro-esophageal reflux disease without esophagitis; I10 Essential (primary) hypertension; G47.33 Obstructive sleep apnea (adult) (pediatric); I48.91 Unspecified atrial fibrillation; E11.9 Type 2 diabetes mellitus without complications; E66.9 Obesity, unspecified; Z68.36 Body mass index [BMI] 36.0-36.9, adult; Z79.01 Long term (current) use of anticoagulants; Z79.84 Long term (current) use of oral hypoglycemic drugs; Z79.899 Other long term (current) drug therapy
CPT/HCPCS: 88305; J2704; J7120

== ENCOUNTER → 2024-04-04 | Outpatient (CLI) | payer MEDICARE, OTHER ==
[~2024-04-04] MED LIST changes: -Lactated Ringer's 1,000 ML IV ONE; +VENCLEXTA100 MG; +Vitamin B-12100 MCG
[2024-04-04 16:01] LABS: BASOPHILS ABSOLUTE AUTO 0.01 K/mm3 (0.00-0.23); BASOPHILS PERCENT AUTO 0 % (0-2); EOSINOPHILS ABSOLUTE AUTO 0.01 K/mm3 (0.00-0.68); EOSINOPHILS PERCENT AUTO 0 % (0-6); Hematocrit 40.7 % (33.0-51.0); IMMATURE GRAN ABSOLUTE AUTO 0.02 K/mm3 (0.00-0.10); IMMATURE GRAN PERCENT AUTO 0 % (0-1); LYMPHOCYTES ABSOLUTE AUTO 0.99 K/mm3 (0.84-5.20); LYMPHOCYTES PERCENT AUTO 15 % (21-46); MONOCYTES ABSOLUTE AUTO 0.79 K/mm3 (0.16-1.47); MONOCYTES PERCENT AUTO 12 % (4-13); Mean Corpuscular HGB 28.7 pg (26.0-34.0); Mean Corpuscular HGB Conc 31.9 g/dL (31.5-36.5); Mean Corpuscular Volume 90 fL (80-100); Mean Platelet Volume 9.3 fL (9.1-12.4); NEUTROPHILS ABSOLUTE AUTO 4.97 K/mm3 (1.96-9.15); NEUTROPHILS PERCENT AUTO 73 % (41-73); Platelet Count 208 K/mm3 (150-400); RDW Coefficient Variation 13.5 % (11.7-14.2); RDW Standard Deviation 43.8 fL (35.1-46.3); Red Blood Cell Count 4.53 M/mm3 (3.80-5.20); White Blood Cell Count 6.79 K/mm3 (4.00-11.30)
[2024-04-04 16:12] LABS: Albumin, Blood 3.6 g/dL (3.4-5.0); Bilirubin, Total 0.4 mg/dL (0.1-1.0); Bun/Creatinine Ratio 26.7 (12.0-20.0); Calcium, Blood 9.2 mg/dL (8.5-10.1); Creatinine, Blood 0.9 mg/dL (0.40-1.00); Globulin, Blood 3.6 g/dL (2.2-4.0); Total Protein, Blood 7.2 g/dL (6.4-8.2)
== END | disposition home or self-care (01) ==
LOC: LAB 15:57 → LAB SHORT 15:57
PROVIDERS: Emergency Medicine
DX: R07.89 Other chest pain (principal)
CPT/HCPCS: 80053; 84484; 85025

== ENCOUNTER 2024-04-25 06:42 | Day surgery (SDC) | payer MEDICARE, OTHER ==
[~2024-04-25] VITALS: Ht 160 cm; Wt 97.2 kg
[2024-04-25] MEDS ORDERED: Lactated Ringer's 1,000 ML IV ONE ×2 (06:50→07:43)
[2024-04-25] MEDS ORDERED: ZOLEDRONIC (07:15)
[2024-04-25] MEDS ORDERED: ALBUTEROL1.25 MG/3 (07:16)
[2024-04-25] MEDS ORDERED: TOPROL XL25 MG (07:16)
[2024-04-25] MEDS ORDERED: BACL10 (07:17)
[2024-04-25] MEDS ORDERED: ePHEDrine Sulfate 50 MG/ML 1ML Injection ONE (07:32)
[2024-04-25] MEDS ORDERED: propofoL 50 ML IV ONE (07:35)
[2024-04-25] MEDS ORDERED: Lidocaine HCl 4% 5 ML SDA ONE (07:43)
[2024-04-25 08:43] VITALS: BP 117/64
== END 2024-04-25 08:55 | disposition home or self-care (01) ==
LOC: ORSCSDS 06:42
PROVIDERS: Internal Medicine Gastroenterology
PROC: 0DB68ZX Excision of Stomach, Via Natural or Artificial Opening Endoscopic, Diagnostic (ICD-10-PCS; principal; 2024-04-25 08:00)
PROC: 0DBA8ZX Excision of Jejunum, Via Natural or Artificial Opening Endoscopic, Diagnostic (ICD-10-PCS; principal; 2024-04-25 08:00)
DX: R10.9 Unspecified abdominal pain (principal); I48.91 Unspecified atrial fibrillation; I50.9 Heart failure, unspecified; I10 Essential (primary) hypertension; G47.33 Obstructive sleep apnea (adult) (pediatric); E11.9 Type 2 diabetes mellitus without complications; K21.9 Gastro-esophageal reflux disease without esophagitis; E66.01 Morbid (severe) obesity due to excess calories; Z68.38 Body mass index [BMI] 38.0-38.9, adult; Z98.84 Bariatric surgery status; Z79.01 Long term (current) use of anticoagulants; Z79.84 Long term (current) use of oral hypoglycemic drugs; Z79.899 Other long term (current) drug therapy
CPT/HCPCS: 88305; 88342; J2003; J2704; J7120

== ENCOUNTER 2024-06-24 16:33 | Emergency (ER) | payer MEDICARE, OTHER ==
[~2024-06-24] VITALS: Ht 160 cm; Wt 97.5 kg
[~2024-06-24 16:33] MED LIST changes: +ALBUTEROL1.25 MG/3; +BACL10; +TOPROL XL25 MG; +ZOLEDRONIC
[2024-06-24 16:55] VITALS: BP 126/70
[2024-06-24] MEDS ORDERED: HYDROcodone 7.5-APAP 325 TAB PO ONE (17:05)
[2024-06-24] MEDS ORDERED: Amoxicillin/Clavulanate K 875 MG Tab PO ONE (17:20)
[2024-06-24] MEDS ORDERED: HYDR1TAB94 PO ×2 (17:31→17:34)
[2024-06-24] MEDS ORDERED: AMOCLA875 PO (17:31)
[2024-06-24] MEDS ORDERED: Amoxicillin/Clavulanate K 875 MG Tab PO SCH (21:00)
== END 2024-06-24 17:28 | disposition home or self-care (01) ==
LOC: ER 16:33
DX: H66.92 Otitis media, unspecified, left ear (principal); I11.0 Hypertensive heart disease with heart failure; I50.9 Heart failure, unspecified; I48.91 Unspecified atrial fibrillation; J45.909 Unspecified asthma, uncomplicated; Z88.6 Allergy status to analgesic agent; Z79.899 Other long term (current) drug therapy; Z79.01 Long term (current) use of anticoagulants; Z87.891 Personal history of nicotine dependence
CPT/HCPCS: 99282; A9270

== ENCOUNTER 2024-06-26 16:34 | Emergency (ER) | payer MEDICARE, OTHER ==
[~2024-06-26] VITALS: Ht 160 cm; Wt 97.5 kg
[~2024-06-26 16:34] MED LIST changes: +AMOCLA875 PO
[2024-06-26 16:45] VITALS: BP 138/53
[2024-06-26] MEDS ORDERED: NYST237S MT (16:56)
[2024-06-26] MEDS ORDERED: DiphenhydrAMINE HCL 25 MG Cap PO ONE (17:00)
[2024-06-26] MEDS ORDERED: Nystatin 100,000 Unit/ML Susp 5 ML UDC PO ONE (17:00)
[2024-06-26] MEDS ORDERED: Lidocaine 2% Viscous Soln 15 ML UDC PO ONE (17:00)
[2024-06-26] MEDS ORDERED: NYSTATIN100000 U10 MT (17:31)
== END 2024-06-26 17:40 | disposition home or self-care (01) ==
LOC: ER 16:34
DX: B37.0 Candidal stomatitis (principal); H66.92 Otitis media, unspecified, left ear; Z59.89 Other problems related to housing and economic circumstances; I10 Essential (primary) hypertension; K21.9 Gastro-esophageal reflux disease without esophagitis; J45.909 Unspecified asthma, uncomplicated
CPT/HCPCS: 99282; A9270

== ENCOUNTER 2024-06-29 11:51 | Emergency (ER) | payer MEDICARE, OTHER ==
[~2024-06-29] VITALS: Ht 160 cm; Wt 97.5 kg
[~2024-06-29 11:51] MED LIST changes: +NYST237S MT; +NYSTATIN100000 U10 MT
[2024-06-29] MEDS ORDERED: Ondansetron HCl 2 MG / ML 2ML Vial IV ONE (13:10)
[2024-06-29 13:25] LABS: BASOPHILS ABSOLUTE AUTO 0.01 K/mm3 (0.00-0.23); BASOPHILS PERCENT AUTO 0 % (0-2); EOSINOPHILS PERCENT AUTO 0 % (0-6); Hematocrit 39.4 % (33.0-51.0); Hemoglobin 13.4 g/dL (11.5-16.0); IMMATURE GRAN ABSOLUTE AUTO 0.01 K/mm3 (0.00-0.10); IMMATURE GRAN PERCENT AUTO 0 % (0-1); LYMPHOCYTES ABSOLUTE AUTO 0.42 K/mm3 (0.84-5.20); LYMPHOCYTES PERCENT AUTO 11 % (21-46); MONOCYTES ABSOLUTE AUTO 0.52 K/mm3 (0.16-1.47); MONOCYTES PERCENT AUTO 14 % (4-13); Mean Corpuscular HGB 30.5 pg (26.0-34.0); Mean Corpuscular Volume 90 fL (80-100); Mean Platelet Volume 8.9 fL (9.1-12.4); NEUTROPHILS ABSOLUTE AUTO 2.88 K/mm3 (1.96-9.15); NEUTROPHILS PERCENT AUTO 75 % (41-73); Platelet Count 138 K/mm3 (150-400); RDW Coefficient Variation 13.4 % (11.7-14.2); RDW Standard Deviation 44.2 fL (35.1-46.3); Red Blood Cell Count 4.39 M/mm3 (3.80-5.20); White Blood Cell Count 3.84 K/mm3 (4.00-11.30)
[2024-06-29 13:39] LABS: Albumin, Blood 3.8 g/dL (3.4-5.0); Albumin/Globulin Ratio 1.1 (0.8-1.8); Bilirubin, Total 0.7 mg/dL (0.1-1.0); Bun/Creatinine Ratio 27.6 (12.0-20.0); Calcium, Blood 9.4 mg/dL (8.5-10.1); Creatinine, Blood 0.73 mg/dL (0.40-1.00); Globulin, Blood 3.6 g/dL (2.2-4.0); Potassium, Blood 3.7 mmol/L (3.5-5.5); Total Protein, Blood 7.4 g/dL (6.4-8.2)
[2024-06-29] MEDS ORDERED: LEVOFLOXACIN50011 PO (13:48)
[2024-06-29] MEDS ORDERED: ONDA4ODT (13:48)
[2024-06-29] MEDS ORDERED: HYDROCODONE-AC1 EA19 (13:48)
[2024-06-29] MEDS ORDERED: OFLOXACIN5 M9 (13:49)
[2024-06-29] MEDS ORDERED: Diflucan150 MG (13:49)
[2024-06-29] MEDS ORDERED: METOPROLOL TART25 MG PO (13:49)
[2024-06-29] MEDS ORDERED: Acetaminophen 325 MG TABLET PO ONE (14:45)
[2024-06-29] MEDS ORDERED: Metoclopramide HCl 5MG / ML 2ML Vial IV ONE (15:45)
[2024-06-29] MEDS ORDERED: OxyCODONE HCL 5 MG TAB PO ONE (15:45)
[2024-06-29] MEDS ORDERED: CIPROFLOX-DEXA7.5 ML LEFTEAR (15:53)
[2024-06-29] MEDS ORDERED: METO5A PO (15:53)
[2024-06-29 15:56] VITALS: BP 149/78
== END 2024-06-29 16:07 | disposition home or self-care (01) ==
LOC: ER 11:51
PROVIDERS: Student in an Organized Health Care Education/Training Program
DX: H66.92 Otitis media, unspecified, left ear (principal); H72.92 Unspecified perforation of tympanic membrane, left ear; I11.0 Hypertensive heart disease with heart failure; I48.91 Unspecified atrial fibrillation; I50.9 Heart failure, unspecified; K21.9 Gastro-esophageal reflux disease without esophagitis; M19.90 Unspecified osteoarthritis, unspecified site; Z88.6 Allergy status to analgesic agent; Z79.899 Other long term (current) drug therapy; Z79.01 Long term (current) use of anticoagulants; Z79.2 Long term (current) use of antibiotics; Z87.891 Personal history of nicotine dependence
CPT/HCPCS: 70491; 80053; 85025; 96374-59; 96375; 99283-25; A9270; J2405; J2765; Q9967

== ENCOUNTER 2024-07-01 19:05 | Emergency (ER) | payer MEDICARE, OTHER ==
[~2024-07-01] VITALS: Ht 160 cm; Wt 91.6 kg
[~2024-07-01 19:05] MED LIST changes: +CIPROFLOX-DEXA7.5 ML LEFTEAR; +Diflucan150 MG; +HYDROCODONE-AC1 EA19; +LEVOFLOXACIN50011 PO; +METO5A PO; +METOPROLOL TART25 MG PO; +OFLOXACIN5 M9; +ONDA4ODT
[2024-07-01 19:36] LABS: BASOPHILS ABSOLUTE AUTO 0.01 K/mm3 (0.00-0.23); BASOPHILS PERCENT AUTO 0 % (0-2); EOSINOPHILS PERCENT AUTO 0 % (0-6); Hematocrit 38.1 % (33.0-51.0); Hemoglobin 13.5 g/dL (11.5-16.0); IMMATURE GRAN ABSOLUTE AUTO 0.02 K/mm3 (0.00-0.10); IMMATURE GRAN PERCENT AUTO 0 % (0-1); LYMPHOCYTES ABSOLUTE AUTO 0.36 K/mm3 (0.84-5.20); LYMPHOCYTES PERCENT AUTO 7 % (21-46); MONOCYTES ABSOLUTE AUTO 0.57 K/mm3 (0.16-1.47); MONOCYTES PERCENT AUTO 11 % (4-13); Mean Corpuscular HGB 31.2 pg (26.0-34.0); Mean Corpuscular HGB Conc 35.4 g/dL (31.5-36.5); Mean Corpuscular Volume 88 fL (80-100); Mean Platelet Volume 9.2 fL (9.1-12.4); NEUTROPHILS ABSOLUTE AUTO 4.28 K/mm3 (1.96-9.15); NEUTROPHILS PERCENT AUTO 82 % (41-73); Platelet Count 162 K/mm3 (150-400); RDW Coefficient Variation 13.9 % (11.7-14.2); RDW Standard Deviation 44.6 fL (35.1-46.3); Red Blood Cell Count 4.33 M/mm3 (3.80-5.20); White Blood Cell Count 5.24 K/mm3 (4.00-11.30)
[2024-07-01 19:58] LABS: Albumin, Blood 3.7 g/dL (3.4-5.0); Albumin/Globulin Ratio 1.1 (0.8-1.8); Bilirubin, Total 0.7 mg/dL (0.1-1.0); Calcium, Blood 9.2 mg/dL (8.5-10.1); Creatinine, Blood 0.66 mg/dL (0.40-1.00); Globulin, Blood 3.3 g/dL (2.2-4.0); Potassium, Blood 3.5 mmol/L (3.5-5.5)
[2024-07-01 22:00] VITALS: BP 155/66
[2024-07-01] MEDS ORDERED: Neurontin 100100 MG PO (22:19)
== END 2024-07-01 22:40 | disposition home or self-care (01) ==
LOC: ER 19:05
PROVIDERS: Physician Assistant
DX: G51.0 Bell's palsy (principal); B02.9 Zoster without complications; I10 Essential (primary) hypertension; I50.9 Heart failure, unspecified; H91.22 Sudden idiopathic hearing loss, left ear; G93.89 Other specified disorders of brain; D32.0 Benign neoplasm of cerebral meninges; K21.9 Gastro-esophageal reflux disease without esophagitis; J45.909 Unspecified asthma, uncomplicated; Z87.891 Personal history of nicotine dependence; Z88.6 Allergy status to analgesic agent; Z79.899 Other long term (current) drug therapy; Z79.01 Long term (current) use of anticoagulants
CPT/HCPCS: 70450; 70553; 80053; 85025; 99284-25; A9579

== ENCOUNTER 2024-07-21 14:55 | Inpatient (IN) | payer MEDICARE, OTHER ==
[~2024-07-21] VITALS: Ht 160 cm; Wt 88.7 kg
[~2024-07-21 14:55] MED LIST changes: +Neurontin 100100 MG PO
[2024-07-21 16:06] LABS: BASOPHILS ABSOLUTE AUTO 0.01 K/mm3 (0.00-0.23); BASOPHILS PERCENT AUTO 0 % (0-2); EOSINOPHILS PERCENT AUTO 0 % (0-6); Hematocrit 41.4 % (33.0-51.0); Hemoglobin 14.2 g/dL (11.5-16.0); IMMATURE GRAN ABSOLUTE AUTO 0.08 K/mm3 (0.00-0.10); IMMATURE GRAN PERCENT AUTO 1 % (0-1); LYMPHOCYTES ABSOLUTE AUTO 0.48 K/mm3 (0.84-5.20); LYMPHOCYTES PERCENT AUTO 5 % (21-46); MONOCYTES ABSOLUTE AUTO 0.33 K/mm3 (0.16-1.47); MONOCYTES PERCENT AUTO 4 % (4-13); Mean Corpuscular HGB 31.9 pg (26.0-34.0); Mean Corpuscular HGB Conc 34.3 g/dL (31.5-36.5); Mean Corpuscular Volume 93 fL (80-100); Mean Platelet Volume 9.9 fL (9.1-12.4); NEUTROPHILS ABSOLUTE AUTO 8.38 K/mm3 (1.96-9.15); NEUTROPHILS PERCENT AUTO 90 % (41-73); Platelet Count 136 K/mm3 (150-400); RDW Coefficient Variation 15.6 % (11.7-14.2); RDW Standard Deviation 50.5 fL (35.1-46.3); Red Blood Cell Count 4.45 M/mm3 (3.80-5.20); White Blood Cell Count 9.28 K/mm3 (4.00-11.30)
[2024-07-21 16:34] LABS: Albumin, Blood 3.4 g/dL (3.4-5.0); Bilirubin, Total 0.5 mg/dL (0.1-1.0); Bun/Creatinine Ratio 32.6 (12.0-20.0); Calcium, Blood 9.2 mg/dL (8.5-10.1); Creatinine, Blood 0.92 mg/dL (0.40-1.00); Globulin, Blood 3.3 g/dL (2.2-4.0); Potassium, Blood 4.9 mmol/L (3.5-5.5); Total Protein, Blood 6.7 g/dL (6.4-8.2)
[2024-07-21] MEDS ORDERED: Lactated Ringer's 1,000 ML IV SCH (18:30)
[2024-07-21] MEDS ORDERED: Piperacillin/Tazobactam Sod 3.375 GM in NS 100 ML IV ONE (18:35)
[2024-07-21 19:03] LABS: Source, Urine Clean Catch
[2024-07-21 19:08] LABS: Appearance, Urine Clear (Clear); Bilirubin, Urine Neg (Neg); Blood, Urine Neg (Neg); Color, Urine Yellow (P-Yellow); Glucose Qualitative, Urine 2+ (Neg); Ketones, Urine Neg (Neg); Leukocyte Esterase, Urine Neg (Neg); Nitrite, Urine Neg (Neg); Protein, Urine Neg (Neg); Urobilinogen, Urine NORM (Normal); pH, Urine 6.5 (5.0-8.0)
[2024-07-21] MEDS ORDERED: Enoxaparin 40 MG/0.4 ML SYR SC SCH (20:00)
[2024-07-21] MEDS ORDERED: Remdesivir (EUA) 200 MG in NS 250 ML IV ONE (20:20)
[2024-07-21] MEDS ORDERED: ZINC15 PO (20:49)
[2024-07-21] MEDS ORDERED: GABA300 PO (20:55)
[2024-07-21] MEDS ORDERED: CefTRIAXone Sodium 1,000 MG in NS 100 ML IV SCH (21:00)
[2024-07-21] MEDS ORDERED: Lactobacil 2-S.Thermo-Bifido 1 1 Cap PO SCH (21:00)
[2024-07-21] MEDS ORDERED: Azithromycin 500 MG in NS 250 ML IV SCH (21:00)
[2024-07-21] MEDS ORDERED: PANT40 PO (21:11)
[2024-07-21] MEDS ORDERED: PREG50 PO (21:11)
[2024-07-21] MEDS ORDERED: JARDIANCE10 MG PO (21:12)
[2024-07-21] MEDS ORDERED: GENTEAL TEARS SE8 ML (21:13)
[2024-07-21] MEDS ORDERED: OXYC5 PO (21:15)
[2024-07-21] MEDS ORDERED: Acetaminophen650 M1 PO (21:16)
[2024-07-21] MEDS ORDERED: NS 250 ML IV PRN (21:55)
[2024-07-21 22:17] VITALS: BP 100/54
[2024-07-21] MEDS ORDERED: Acetaminophen 325 MG TABLET PO SCH (22:40)
[2024-07-21] MEDS ORDERED: OxyCODONE HCL 5 MG TAB PO PRN (22:45)
[2024-07-21] MEDS ORDERED: Mometasone/Formoterol MDI 100/5 mcg 13 GM INH SCH (23:00)
[2024-07-22] VITALS (25 sets, daily range): BP systolic 75–119; BP diastolic 35–69
[2024-07-22 04:45] LABS: BASOPHILS PERCENT AUTO 0 % (0-2); EOSINOPHILS ABSOLUTE AUTO 0.02 K/mm3 (0.00-0.68); EOSINOPHILS PERCENT AUTO 0 % (0-6); Hematocrit 37.8 % (33.0-51.0); Hemoglobin 12.4 g/dL (11.5-16.0); IMMATURE GRAN ABSOLUTE AUTO 0.06 K/mm3 (0.00-0.10); IMMATURE GRAN PERCENT AUTO 1 % (0-1); LYMPHOCYTES ABSOLUTE AUTO 0.74 K/mm3 (0.84-5.20); LYMPHOCYTES PERCENT AUTO 12 % (21-46); MONOCYTES ABSOLUTE AUTO 0.24 K/mm3 (0.16-1.47); MONOCYTES PERCENT AUTO 4 % (4-13); Mean Corpuscular HGB 31.1 pg (26.0-34.0); Mean Corpuscular HGB Conc 32.8 g/dL (31.5-36.5); Mean Corpuscular Volume 95 fL (80-100); Mean Platelet Volume 9.8 fL (9.1-12.4); NEUTROPHILS ABSOLUTE AUTO 5.38 K/mm3 (1.96-9.15); NEUTROPHILS PERCENT AUTO 84 % (41-73); Platelet Count 107 K/mm3 (150-400); RDW Coefficient Variation 15.6 % (11.7-14.2); Red Blood Cell Count 3.99 M/mm3 (3.80-5.20); White Blood Cell Count 6.44 K/mm3 (4.00-11.30)
[2024-07-22 05:03] LABS: Albumin, Blood 2.8 g/dL (3.4-5.0); Albumin/Globulin Ratio 0.9 (0.8-1.8); Bilirubin, Total 0.3 mg/dL (0.1-1.0); Bun/Creatinine Ratio 32.1 (12.0-20.0); Calcium, Blood 8.2 mg/dL (8.5-10.1); Creatinine, Blood 0.87 mg/dL (0.40-1.00); Potassium, Blood 4.2 mmol/L (3.5-5.5); Total Protein, Blood 5.8 g/dL (6.4-8.2)
[2024-07-22] MEDS ORDERED: Pantoprazole Sodium 40 MG Tab PO SCH (06:00)
--- NOTE | 2024-07-22 06:38 | NUR ---
PT HAS BEEN STABLE THROUGHOUT THE SHIFT. PT IS AOX4, 1 ASSIST TO BSC, INCONTINENT TO URINE AT THIS TIME. PT ABLE TO USE CALL LIGHT AND MAKE NEEDS KNOWN. PT TOLERATING ANTIVIRAL AND ABX INFUSIONS WELL AT THIS TIME. PT DOES USE SUPPLEMENTAL O2 AT NIGHT AT HOME AND DID WEAR 2L WHEN SHE WAS SLEEPING. PT WAS ON ROOM AIR WITH GOOD SATS OTHERWISE. NO SEVERE BRADYCARDIA OR TACHYCARDIA NOTED, PT APPEARS SINUS RHYTHM WITH FREQUENT PACS NOTED. PILLS WHOLE IN PUDDING. PT IS COVID PRECAUTIONS AND SIGNAGE IN PLACE. NO ACTIVE SHINGLES BUT DOES HAVE NEUROPATHY/NEURALGIA ASSOCIATED WITH PREVIOUS INFECTION.
[2024-07-22] MEDS ORDERED: Lisinopril 5 MG Tab PO SCH (09:00)
[2024-07-22] MEDS ORDERED: Metoprolol Tartrate 25 MG Tab PO SCH (09:00)
[2024-07-22] MEDS ORDERED: Misc. Opth LEFTEYE SCH (09:00)
[2024-07-22] MEDS ORDERED: Ferrous Gluconate 325 MG Tablet PO SCH (09:00)
[2024-07-22] MEDS ORDERED: Pregabalin 50 MG Capsule PO SCH (09:00)
[2024-07-22] MEDS ORDERED: Folic Acid 1 MG TAB PO SCH (09:00)
[2024-07-22] MEDS ORDERED: Empagliflozin 10 MG TAB PO SCH ×2 (09:00)
[2024-07-22] MEDS ORDERED: Misc. Tablet PO SCH (09:00)
[2024-07-22] MEDS ORDERED: Furosemide 40 MG Tab PO SCH (09:00)
[2024-07-22] MEDS ORDERED: Gabapentin 300 MG Cap PO SCH (09:00)
[2024-07-22] MEDS ORDERED: Apixaban 5 MG Tab PO SCH (09:00)
[2024-07-22] MEDS ORDERED: Cholecalciferol 1000 Unit Tablet (=25MCG) PO SCH (09:00)
[2024-07-22] MEDS ORDERED: Ascorbic Acid 500 MG Tab PO SCH (09:00)
[2024-07-22] MEDS ORDERED: NS 500 ML IV ONE ×2 (11:35→14:20)
--- NOTE | 2024-07-22 11:57 | NUR ---
BLOOD PRESSURE WAS AT 84/57 MAP 65, DAUGHTER AT THE BEDSIDE WHEN THE VITALS SIGNS WERE TAKEN, ALSO ASKED IF BLOOD PRESSURE MEDS WERE GIVEN THIS MORNING DAUGHTER SAID THAT SHE USUALLY DONT GIVE LISINOPRIL 5MG AND METOPROLOL 12.5MG WHEN BLOOD PRESSURE IS LESS THAN 140/90 AT HOME. AND WOULD LIKE TO TALK TO THE PROVIDER ABOUT PT'S HOME MEDICATIONS. DR HOANG WAS CALLED AND MADE AWARE AND IS ABLE TO COME BY A LITTLE LATER AFTER HE'S DONE WITH HIS TASK AT THE MOMENT. ORDER FOR 500MLS NS BOLUS RECEIVED, BOLUS CURRENTLY INFUSING TO CONTINUE TO MONITOR BLOOD PRESSURE
[2024-07-22] MEDS ORDERED: Midodrine 5 MG Tab PO ONE ×2 (13:00→14:20)
[2024-07-22] MEDS ORDERED: Artificial Tear Opth Oint 3.5 GM LEFTEYE SCH (13:00)
--- NOTE | 2024-07-22 17:51 | NUR ---
PT SUMMARY; UPDATE WITH SOFT BP'S: TOTAL OF 100OMLS OF NS BOLUS GIVEN FOR THE SHIFT AND 10MG PO MIDODRINE. SBP REMAINS SOFT 80-100'S, MAP KEPT ABOVE 60 MD AWARE TO KEEP MAP ABOVE 60. EDGE RUNNER ALSO CONSULTED FOR TACHY FÉLIX SYNDROME, WILL COME AND SEE PT TODAY. PT STATED SHE FELT LETHARGIC TODAY, PROCALCITONIN DONE CAME BACK NEGATIVE, ALSO ABLE TO STAND AND USE BEDSIDE COMMODE WITH NO ISSUES PT STATED SHE'S ALWAYS FEEL DIZZY DUE TO HER NEURALGIA AND VISION CHANGES THAT HAS BEEN GOING ON EVER SINCE SHE GOT SHINGLES. PT MEDICATED FOR PAIN EVERY 4 HRS FOR FACIAL NEURALGIA, ALSO WAS GIVEN WARM PAD AND WAS HELPFUL. DAUGHTER AT THE BEDSIDE WAS ABLE TO TALK TO DR HOANG ABOUT HOME MEDICATIONS, SOME CHANGES MADE, BLOOD PRESSURE MEDS AND LASIX WAS DC'D. PT HAS BEEN UP IN THE CHAIR FOR MEALS. NO OTHER ISSUES ENCOUNTERED. WILL REPORT TO ONCOMING SHIFT
[2024-07-22] MEDS ORDERED: Remdesivir (EUA) 100 MG in NS 250 ML IV SCH (21:00)
[2024-07-22] MEDS ORDERED: Sertraline HCl 100 MG Tab PO SCH (21:00)
[2024-07-23 00:25] VITALS: BP 108/58
[2024-07-23 04:29] VITALS: BP 110/60
--- NOTE | 2024-07-23 06:58 | NUR ---
PT HAS BEEN STABLE THROUGHOUT THE SHIFT. PT VITAL SIGNS WNL, BP NEEDED TO BE TAKEN MANUALLY THE AUTOMATIC CUFF WAS LOWER THAN MANUAL BP. PT ON 2L O2 OVERNIGHT WHICH IS HER HOME DOSE. PT MEDICATED FOR LT FACIAL PAIN X2. PT DID APPEAR TO SLEEP WELL THROUGHOUT THE SHIFT. PT TOLERATING THE IV ABX/ANTIVIRALS WELL. PT TAKES PILLS WHOLE WITH PUDDING. HEATING PAD IN PLACE FOR LEFT FACIAL PAIN. NO C/O DYSPNEA OR CHEST PAIN. PT CONTINUES TO HAVE A MILDLY PRODUCTIVE MOIST COUGH.
[2024-07-23] MEDS ORDERED: Ipratropium/Albuterol SulF 2.5-0.5MG/3 ML Amp INH PRN (07:05)
[2024-07-23 08:19] LABS: BASOPHILS PERCENT AUTO 0 % (0-2); EOSINOPHILS ABSOLUTE AUTO 0.03 K/mm3 (0.00-0.68); EOSINOPHILS PERCENT AUTO 1 % (0-6); Hematocrit 34.1 % (33.0-51.0); Hemoglobin 11.1 g/dL (11.5-16.0); IMMATURE GRAN ABSOLUTE AUTO 0.04 K/mm3 (0.00-0.10); IMMATURE GRAN PERCENT AUTO 1 % (0-1); LYMPHOCYTES ABSOLUTE AUTO 0.66 K/mm3 (0.84-5.20); LYMPHOCYTES PERCENT AUTO 13 % (21-46); MONOCYTES ABSOLUTE AUTO 0.26 K/mm3 (0.16-1.47); MONOCYTES PERCENT AUTO 5 % (4-13); Mean Corpuscular HGB 31.3 pg (26.0-34.0); Mean Corpuscular HGB Conc 32.6 g/dL (31.5-36.5); Mean Corpuscular Volume 96 fL (80-100); Mean Platelet Volume 9.7 fL (9.1-12.4); NEUTROPHILS ABSOLUTE AUTO 4.09 K/mm3 (1.96-9.15); NEUTROPHILS PERCENT AUTO 81 % (41-73); Platelet Count 103 K/mm3 (150-400); RDW Coefficient Variation 16.3 % (11.7-14.2); RDW Standard Deviation 55.3 fL (35.1-46.3); Red Blood Cell Count 3.55 M/mm3 (3.80-5.20); White Blood Cell Count 5.08 K/mm3 (4.00-11.30)
[2024-07-23 08:26] VITALS: BP 110/52
[2024-07-23 08:32] LABS: Bun/Creatinine Ratio 32.7 (12.0-20.0); Creatinine, Blood 1.1 mg/dL (0.40-1.00); Potassium, Blood 4.7 mmol/L (3.5-5.5)
[2024-07-23 13:08] VITALS: BP 110/50
--- NOTE | 2024-07-23 13:46 | NUR ---
TO ROOM 362 VIA WHEELCHAIR ACCOMPANIED BY DAUGHTER. PT REPORTS SEVERE LEFT EAR PAIN. 1 PERSON TRANSFER WITH GAIT BELT TO BED
--- NOTE | 2024-07-23 14:25 | NUR ---
TRANSFER UPDATE REPORT GIVEN TO MED FLOOR RN AT 1325. PT TRANSFERED AT 1330 VIA WHEELCHAIR AND ON RA. PT BELONGINGS AND MEDS TRANSFERED WITH PT. PT DAUGHTER PRESENT AT TIME OF TRANSFER.
[2024-07-23 17:43] VITALS: BP 108/64
--- NOTE | 2024-07-23 20:03 | NUR ---
SHIFT SUMMARY- PT TRANSFERED TO MEDICAL FLOOR FROM PCU. PT ON TELE [facility]IN [facility]. SHE HAS BEEN MEDICATED FOR PAIN PRN Q4 HOURS PER EMAR. PT IS IN BED, CALL LIGHT IN REACH FAMILY AT THE BEDSIDE AT THE TIME OF REPORT. PT IN ISO FOR COVID. NO CURRENT S&S OF DISTRESS NOTED.
[2024-07-23 20:50] VITALS: BP 108/45
[2024-07-23] MEDS ORDERED: Polyethylene Glycol 3350 17 gm PO SCH (22:40)
[2024-07-24 00:57] VITALS: BP 118/54
--- NOTE | 2024-07-24 04:03 | NUR ---
SHIFT SUMMARY PATIENT HAD NO ACUTE CHANGES. ALERT, ORIENTED, AND ONE ASSIST TO BR. DENIES CHEST PAIN, SOB, AND N/V. VSS/AFEBRILE. PIV INTACT. IV ABXS INFUSED. REPORTED LEFT FACE/JAW EAR PAIN AND OXYCODONE 10 MG GIVEN PER EMAR. ON 2L O2 NC. REQUESTED MIRALAX AND HOSPITALIST ORDERED AND GIVEN. CALL LIGHT IN REACH. BED IN LOWEST POSITION. WILL CONTINUE TO MONITOR UNTIL DAY SHIFT NURSE ASSUMES CARE.
[2024-07-24 05:27] VITALS: BP 132/57
[2024-07-24 07:19] LABS: BASOPHILS PERCENT AUTO 0 % (0-2); EOSINOPHILS ABSOLUTE AUTO 0.07 K/mm3 (0.00-0.68); EOSINOPHILS PERCENT AUTO 2 % (0-6); Hematocrit 32.2 % (33.0-51.0); Hemoglobin 10.5 g/dL (11.5-16.0); IMMATURE GRAN ABSOLUTE AUTO 0.03 K/mm3 (0.00-0.10); IMMATURE GRAN PERCENT AUTO 1 % (0-1); LYMPHOCYTES PERCENT AUTO 16 % (21-46); MONOCYTES ABSOLUTE AUTO 0.19 K/mm3 (0.16-1.47); MONOCYTES PERCENT AUTO 5 % (4-13); Mean Corpuscular HGB 31.2 pg (26.0-34.0); Mean Corpuscular HGB Conc 32.6 g/dL (31.5-36.5); Mean Corpuscular Volume 96 fL (80-100); Mean Platelet Volume 9.5 fL (9.1-12.4); NEUTROPHILS ABSOLUTE AUTO 2.97 K/mm3 (1.96-9.15); NEUTROPHILS PERCENT AUTO 77 % (41-73); Platelet Count 97 K/mm3 (150-400); RDW Coefficient Variation 16.1 % (11.7-14.2); RDW Standard Deviation 54.4 fL (35.1-46.3); Red Blood Cell Count 3.37 M/mm3 (3.80-5.20); White Blood Cell Count 3.86 K/mm3 (4.00-11.30)
[2024-07-24 07:40] LABS: Bun/Creatinine Ratio 34.3 (12.0-20.0); Calcium, Blood 8.2 mg/dL (8.5-10.1); Creatinine, Blood 0.85 mg/dL (0.40-1.00); Potassium, Blood 4.5 mmol/L (3.5-5.5)
[2024-07-24] MEDS ORDERED: LACT PO (14:10)
[2024-07-24] MEDS ORDERED: CEFP200 PO (14:10)
--- NOTE | 2024-07-24 15:06 | NUR ---
DISCHARGE NOTE- PT AND FAMILY RECIEVED WRITTEN AND VERBAL DISCHARGE TEACHING. HOME O2 STUDY SHOWED NO NEED. PT DISCHARGED HOME. NO S&S OF DISTESS NOTED AT THE TIME OF DISCHARGE. PT TELE AND IV DC'D AT THE TIME OF DISCHARGE. PT ESORTED OUT VIA WC BY THE TECHNICAL BUSINESS ANALYST.
== END 2024-07-24 14:50 | disposition home health service (06) | DRG 177 ==
LOC: ER 14:55 → PCU 18:48 → MEDS 07-23 14:02
PROVIDERS: Internal Medicine; Student in an Organized Health Care Education/Training Program; ADMIT Internal Medicine
PROC: XW033E5 Introduction of Remdesivir Anti-infective into Peripheral Vein, Percutaneous Approach, New Technology Group 5 (ICD-10-PCS; principal; 2024-07-21)
DX: U07.1 COVID-19 (principal); J12.82 Pneumonia due to coronavirus disease 2019; I50.22 Chronic systolic (congestive) heart failure; C85.90 Non-Hodgkin lymphoma, unspecified, unspecified site; J44.0 Chronic obstructive pulmonary disease with (acute) lower respiratory infection; D84.9 Immunodeficiency, unspecified; E87.1 Hypo-osmolality and hyponatremia; B02.21 Postherpetic geniculate ganglionitis; I49.5 Sick sinus syndrome; I48.91 Unspecified atrial fibrillation; Z96.653 Presence of artificial knee joint, bilateral; E66.9 Obesity, unspecified; E78.5 Hyperlipidemia, unspecified; G47.33 Obstructive sleep apnea (adult) (pediatric); K21.9 Gastro-esophageal reflux disease without esophagitis; F32.A Depression, unspecified; F41.9 Anxiety disorder, unspecified; I11.0 Hypertensive heart disease with heart failure; Z88.8 Allergy status to other drugs, medicaments and biological substances; Z79.899 Other long term (current) drug therapy; Z79.01 Long term (current) use of anticoagulants; Z79.891 Long term (current) use of opiate analgesic; M06.9 Rheumatoid arthritis, unspecified; M19.90 Unspecified osteoarthritis, unspecified site; Z90.710 Acquired absence of both cervix and uterus; Z90.49 Acquired absence of other specified parts of digestive tract; Z98.84 Bariatric surgery status; Z98.890 Other specified postprocedural states; Z87.891 Personal history of nicotine dependence; Z85.118 Personal history of other malignant neoplasm of bronchus and lung; Z68.35 Body mass index [BMI] 35.0-35.9, adult
CPT/HCPCS: 36415; 71046; 80048; 80053; 81003; 83605; 83880; 84145; 84439; 84443; 85025; 93005; 93010; 93306; 94640; 94664; 94761; 94762; 97162; 97165; 97530; 99285-25; A9270; J0248; J0456; J0696; J2543; J7040; J7050; J7120

== ENCOUNTER 2024-07-27 14:08 | Emergency (ER) | payer MEDICARE, OTHER ==
[~2024-07-27] VITALS: Ht 160 cm; Wt 93.9 kg
[~2024-07-27 14:08] MED LIST changes: +Acetaminophen650 M1 PO; +CEFP200 PO; +GABA300 PO; +GENTEAL TEARS SE8 ML; +LACT PO; +OXYC5 PO; +PANT40 PO; +PREG50 PO; +ZINC15 PO
[2024-07-27 15:55] LABS: Albumin, Blood 2.7 g/dL (3.4-5.0); Albumin/Globulin Ratio 0.8 (0.8-1.8); Bilirubin, Total 0.4 mg/dL (0.1-1.0); Calcium, Blood 8.4 mg/dL (8.5-10.1); Creatinine, Blood 0.72 mg/dL (0.40-1.00); Globulin, Blood 3.5 g/dL (2.2-4.0); Potassium, Blood 4.6 mmol/L (3.5-5.5); Total Protein, Blood 6.2 g/dL (6.4-8.2)
[2024-07-27 15:57] LABS: Influenza A, PCR NEGATIVE (NEGATIVE); Influenza B, PCR NEGATIVE (NEGATIVE); Resp Syncytial Virus, PCR NEGATIVE (NEGATIVE); SARS-Cov-2 (COVID-19) PCR, MMC NEGATIVE (NEGATIVE)
[2024-07-27 16:19] LABS: Base Excess Venous 8.8 mmol/L; Bicarbonate Venous 31.5 mmol/L (24.0-30.0); PCO2 Venous 48.3 mmHg (38-42); pH Blood Venous 7.44 (7.34-7.37)
[2024-07-27] MEDS ORDERED: Albuterol 2.5 MG/3 ML VIAL INH SCH (16:20)
[2024-07-27 16:21] LABS: BASOPHILS ABSOLUTE AUTO 0.01 K/mm3 (0.00-0.23); BASOPHILS PERCENT AUTO 0 % (0-2); EOSINOPHILS ABSOLUTE AUTO 0.11 K/mm3 (0.00-0.68); EOSINOPHILS PERCENT AUTO 3 % (0-6); Hematocrit 32.8 % (33.0-51.0); Hemoglobin 10.6 g/dL (11.5-16.0); IMMATURE GRAN ABSOLUTE AUTO 0.01 K/mm3 (0.00-0.10); IMMATURE GRAN PERCENT AUTO 0 % (0-1); LYMPHOCYTES ABSOLUTE AUTO 0.63 K/mm3 (0.84-5.20); LYMPHOCYTES PERCENT AUTO 17 % (21-46); MONOCYTES ABSOLUTE AUTO 0.26 K/mm3 (0.16-1.47); MONOCYTES PERCENT AUTO 7 % (4-13); Mean Corpuscular HGB 31.3 pg (26.0-34.0); Mean Corpuscular HGB Conc 32.3 g/dL (31.5-36.5); Mean Corpuscular Volume 97 fL (80-100); NEUTROPHILS ABSOLUTE AUTO 2.65 K/mm3 (1.96-9.15); NEUTROPHILS PERCENT AUTO 72 % (41-73); Platelet Count 100 K/mm3 (150-400); RDW Coefficient Variation 15.8 % (11.7-14.2); RDW Standard Deviation 54.4 fL (35.1-46.3); Red Blood Cell Count 3.39 M/mm3 (3.80-5.20); White Blood Cell Count 3.67 K/mm3 (4.00-11.30)
[2024-07-27] MEDS ORDERED: NS 1,000 ML IV SCH (17:05)
[2024-07-27] MEDS ORDERED: Ketorolac Tromethamine 15mg Vial IV ONE (17:25)
[2024-07-27 17:48] LABS: Source, Urine Straight Cath
[2024-07-27 17:50] LABS: Appearance, Urine Clear (Clear); Bilirubin, Urine Neg (Neg); Blood, Urine Neg (Neg); Color, Urine Yellow (P-Yellow); Glucose Qualitative, Urine 4+ (Neg); Ketones, Urine Neg (Neg); Leukocyte Esterase, Urine Neg (Neg); Nitrite, Urine Neg (Neg); Protein, Urine 1+ (Neg); Urobilinogen, Urine NORM (Normal); pH, Urine 6.5 (5.0-8.0)
[2024-07-27 19:10] VITALS: BP 107/50
== END 2024-07-27 19:13 | disposition home or self-care (01) ==
LOC: ER 14:08
PROVIDERS: Physician Assistant; Student in an Organized Health Care Education/Training Program
DX: R53.1 Weakness (principal); I10 Essential (primary) hypertension; J45.909 Unspecified asthma, uncomplicated; K21.9 Gastro-esophageal reflux disease without esophagitis; Z88.6 Allergy status to analgesic agent; Z79.899 Other long term (current) drug therapy; Z79.01 Long term (current) use of anticoagulants
CPT/HCPCS: 0241U; 70450; 71046; 73560-RT; 80053; 82803; 83605; 83735; 83880; 84145; 85025; 93005; 93010; 94644; 94664; 96361; 96374; 99284-25; J1885; J7030

== ENCOUNTER → 2025-04-14 | Outpatient (CLI) | payer MEDICARE, OTHER | END | disposition home or self-care (01) | LOC: LAB SHORT 16:39 → LAB 16:39 | DX: N30.00 Acute cystitis without hematuria (principal) | CPT/HCPCS: 87077; 87086; 87186 ==